=== PATIENT | male | born 1965 | race Caucasian/White ===

== ENCOUNTER → 2016-07-01 | Outpatient (CLI) | payer MEDICARE ==
[~2016-07-01] MED LIST: LISINOPRIL 20MG20 MG PO; LORTAB 7.5/3251 TAB PO; METOPROLOL SUCC25 M1 PO; NEURONTIN600 M1 PO
--- NOTE | 2016-07-01 09:08 | CARDIOVASCULAR REPORT ---
"Cerebrovascular Exam Indications: 780.4 Dizziness and giddiness. 780.4 Vertigo. IMPRESSIONS 1. The bilateral internal carotid arteries reveal no evidence of plaque or stenosis. 2. The bilateral common and external carotid arteries reveal no significant stenosis. 3. The bilateral vertebral arteries are patent with normal antegrade flow. History: Coronary artery disease. Risk factors: Current tobacco use. Hypertension. Carotid duplex study. Complete study and Doppler flow study including spectral analysis, color and hill scale imaging. Height: Height: 170.2cm. Height: 67in. Weight: Weight: 79.4kg. Weight: 174.6lb. Body mass index: BMI: 27.4kg/m^2. Body surface area: BSA: 1.95m^2. Location: Vascular laboratory. Patient status: Outpatient. Tables: Arterial flow: + +--------+--------+ |Location |V sys |V ed | + +--------+--------+ |Right CCA - proximal|123cm/s |47.1cm/s| + +--------+--------+ |Right CCA - distal |94.3cm/s|37.7cm/s| + +--------+--------+ |Right ECA |108cm/s |--------| + +--------+--------+ |Right ICA - proximal|62.2cm/s|30.7cm/s| + +--------+--------+ |Right ICA - mid |87.3cm/s|42.6cm/s| + +--------+--------+ |Right ICA - distal |83.1cm/s|43.3cm/s| + +--------+--------+ |Right vertebral |30.7cm/s|--------| + +--------+--------+ |Left CCA - proximal |139cm/s |45.4cm/s| + +--------+--------+ |Left CCA - distal |99.2cm/s|39.8cm/s| + +--------+--------+ |Left ECA |64.8cm/s|--------| + +--------+--------+ |Left ICA - proximal |61.4cm/s|31.9cm/s| + +--------+--------+ |Left ICA - mid |87.7cm/s|42.5cm/s| + +--------+--------+ |Left ICA - distal |81.6cm/s|43cm/s | + +--------+--------+ |Left vertebral |51.8cm/s|--------| + +--------+--------+ Velocity ratios: + + + + + + | |Right, V sys|Right, V ed|Left, V sys|Left, V ed| + + + + + + |Max ICA/dist CCA|0.93 |1.15 |0.88 |1.08 | + + + + + + (Report amended ) Electronically signed by: Checo Ponce [id number]"
== END ==
LOC: RT 08:31
DX: R42 Dizziness and giddiness (principal)

== ENCOUNTER → 2016-12-19 | Outpatient (CLI) | payer MEDICARE ==
[2016-12-19 12:10] LABS: AMPHETAMINES/METAMPHETAMINES NEGATIVE ng/mL (<1000)
== END ==
LOC: LAB 11:28
PROVIDERS: Physician Assistant
DX: M51.16 Intervertebral disc disorders with radiculopathy, lumbar region (principal)

== ENCOUNTER → 2017-01-17 | Outpatient (CLI) | payer MEDICARE ==
[2017-01-17 13:47] LABS: HEMOGLOBIN 14.6 g/dL (14.1-18.0); LYMPH # 2.8 K/mm3 (0.7-4.5); LYMPH % 21.3 % (10-50)
[2017-01-17 14:29] LABS: BUN 15 mg/dL (7-18)
[2017-01-17 15:15] LABS: GFR (ESTIMATED) 70 ML/MIN (>60)
[2017-01-18 08:40] LABS: HIV Screen 4th Generation wRfx Non Reactive (Non Reactive)
== END ==
LOC: LAB 13:32
PROVIDERS: Physician Assistant
DX: R61 Generalized hyperhidrosis (principal); Z11.4 Encounter for screening for human immunodeficiency virus [HIV]
CPT/HCPCS: G0432